=== PATIENT | male | born 1960 | race Two or more races ===

== ENCOUNTER → 2024-09-25 | Outpatient (CLI) | payer SELFPAY ==
--- NOTE | 2024-09-25 | XR_ITS ---
Examination: PA lateral chest 2 views Technique: Upright PA lateral chest 2 views Exam date and time: September 25, 2024 1310 hrs. Indications: Coughing beginning 3 weeks ago Findings: Normal heart size Lungs are clear. The osseous structures are intact Impression: No active disease
== END | disposition home or self-care (01) ==
DX: R05.9 Cough, unspecified (principal)
CPT/HCPCS: 71046